=== PATIENT | female | born 1960 | race Caucasian/White ===

== ENCOUNTER → 2017-08-11 15:48 | Outpatient (CLI) | payer OTHER, SELFPAY ==
--- NOTE | 2017-08-11 16:50 | MM_ITS ---
MM Dig screening mamm BI w/CAD CAD Screening INDICATION: Screening exam ORDERING PHYSICIAN: Rosita Streeter PATIENT AGE: 56 years Patient gives history of having previous exam however, they're not available for review. Report is delayed waiting on those studies which are not been made available. Those reports are available for review with the exam dated 03/06/2004 TECHNIQUE: Standard CC and MLO images were obtained. R2 CAD reviewed. FINDINGS: There is average fibroglandular tissue.. Loosely clustered calcifications are present in the upper outer aspect of the right breast. These are probably benign however they were not mentioned previously. A cluster of calcifications are noted in the upper outer left breast also not mentioned on the previous exam. Magnification views of both of these areas are recommended along with straight ML views. Scattered asymmetric densities are present including left retroareolar region, central left breast, and central right breast for spot compression views are suggested. IMPRESSION: Bilateral indeterminate calcifications and asymmetric densities as described above indeterminate BI-RADS Category: 0 Need Additional Imaging Evaluation RECOMMENDED FOLLOW-UP: IMM - IMMEDIATE FOLLOW-UP RECOMMENDED Recommend bilateral magnification views, spot compression views, and straight ML views. If asymmetric densities persist then, ultrasound may be needed (A letter has been sent to patient explaining the results)
== END ==
PROVIDERS: Family Provider Internal Medicine Adolescent Medicine; PCP Internal Medicine Adolescent Medicine; Visit Provider Nurse Practitioner Family
DX: Z12.31 Encounter for screening mammogram for malignant neoplasm of breast (principal); M75.41 Impingement syndrome of right shoulder
CPT/HCPCS: 77067

== ENCOUNTER 2017-08-11 15:56 | Outpatient (RCR) | payer OTHER, SELFPAY | END 2017-08-11 15:57 | disposition home or self-care (01) | LOC: PT 15:56 | PROVIDERS: Family Provider Internal Medicine Adolescent Medicine; PCP Internal Medicine Adolescent Medicine; Visit Provider Nurse Practitioner Family | DX: M75.41 Impingement syndrome of right shoulder (principal) | CPT/HCPCS: 97163 ==

== ENCOUNTER → 2017-09-01 12:46 | Outpatient (CLI) | payer OTHER, SELFPAY ==
--- NOTE | 2017-09-01 12:52 | US_ITS ---
MM Dig mamm BI DX w/CAD, US breast LT complete US breast RT complete COMPARISON: 08/11/2017 INDICATION: Follow-up abnormal mammogram ORDERING PHYSICIAN: Rosita Streeter PATIENT AGE: 56 years TECHNIQUE: Problem-solving views performed of both breasts along with bilateral breast ultrasound FINDINGS: Right Mammogram: Calcifications in the upper outer aspect of the right breast are probably benign. Short-term follow-up suggested. The areas of asymmetric density appear to compress out likely representing fibroglandular tissue. A 5 mm nodular opacity is present in the outer aspect of the right breast may be due to a lymph node. Right breast ultrasound: No suspicious cystic or solid lesions are evident. Left mammogram: Cluster of calcifications noted in the upper outer aspect of the left breast are coarse in nature with some calcification being slightly smudgy. There is a probably benign. Or term follow-up recommended. Asymmetric density in the retroareolar region in the anterior mid aspect of the left breast seen on and the cc view also appears to compress out with no sonographic abnormality evident in this region. Probably benign. There is a benign-appearing 4 mm nodule in the outer aspect of the left breast and may be due to small lymph node Left breast ultrasound: No cystic or solid lesions evident. IMPRESSION: No convincing evidence of malignancy. Probably benign findings bilaterally. BI-RADS Category: 3 Benign Finding Short Term Follow-up RECOMMENDED FOLLOW-UP: 6M - 6 MONTH FOLLOW-UP bilateral 6 month mammographic follow up (A letter has been sent to the patient regarding results of the study.)
== END ==
PROVIDERS: Family Provider Internal Medicine Adolescent Medicine; PCP Internal Medicine Adolescent Medicine; Visit Provider Nurse Practitioner Family
DX: R92.8 Other abnormal and inconclusive findings on diagnostic imaging of breast (principal)
CPT/HCPCS: 76641; 77066

== ENCOUNTER → 2018-11-23 10:04 | Outpatient (CLI) | payer OTHER, SELFPAY ==
--- NOTE | 2018-11-23 10:17 | XR_ITS ---
XR chest 2V HISTORY: ITS.REASON: LEG EDEMA ORDERING PHYSICIAN: Deemtrio Collado MD PATIENT AGE: 57 years COMPARISON: None FINDINGS: The cardiomediastinal silhouette and pulmonary vascularity are within normal limits. The lungs are clear without infiltrates, suspicious nodules, or pleural effusions. 4 mm granuloma is present in the right midlung and 5 mm granuloma left lower lobe No acute bony abnormalities. IMPRESSION: No acute finding
[2018-11-23 11:43] LABS: Basophils % 0.7 % (0.1-2.0); Eosinophils # 0.2 K/mm3 (0.0-0.4); Eosinophils % 3.3 % (0.1-12.0); Hematocrit 48.2 % (37.0-47.0); Hemoglobin 15.7 g/dL (12.2-16.2); Mean Corpuscular HGB Conc 32.5 g/dL (31.8-35.4); Mean Corpuscular Hemoglobin 30.3 pg (27.0-31.2); Mean Corpuscular Volume 93.3 fl (81-99); Monocytes # 0.4 K/mm3 (0.1-1.0); Monocytes % 6.2 % (1.7-9.3); Neutrophils # 3.6 K/mm3 (1.8-7.8); Neutrophils % 57.7 % (37.0-80.0); Platelet Count 238 K/mm3 (142-424); Red Blood Count 5.17 M/mm3 (4.20-5.40); Red Cell Distribution Width 13.3 % (11.5-17.5); White Blood Count 6.2 K/mm3 (4.8-10.8)
[2018-11-23 12:36] LABS: Alanine Aminotransferase 32 U/L (12-78); Albumin Level 3.6 gm/dL (3.4-5.0); Albumin/Globulin Ratio 1.1 (1.1-1.8); Alkaline Phosphatase 136 U/L (46-116); Aspartate Amino Transferase 13 U/L (15-37); Bilirubin,Total 0.5 mg/dL (0.2-1.0); Blood Urea Nitrogen 18 mg/dL (7-18); Calcium 9.3 mg/dL (8.5-10.1); Carbon Dioxide 26 mmol/L (21.0-32.0); Chloride 106 mmol/L (98-107); Chol/HDL Ratio 8.2 (1-3.5); Cholesterol 237 mg/dL (140-200); Estimated Glomerular Filt Rate 57 ml/min (>60); GFR (African American) 69 ML/MIN (>60); Globulin 3.3 gm/dl (1.3-3.2); Glucose 82 mg/dL (74-106); HDL Cholesterol 29 mg/dL (29-89); LDL Cholesterol 161 mg/dL (0-130); Sodium 142 mmol/L (136-145); T4 (Thyroxine) 9.7 ug/dl (4.7-13.3); Thyroid Stimulating Hormone 1.28 uIU/ml (0.358-3.740); Total Protein,Serum 6.9 gm/dL (6.4-8.2); Triglycerides 235 mg/dL (30-200); VLDL Cholesterol 47 mg/dL (0-40)
== END ==
PROVIDERS: PCP Internal Medicine Adolescent Medicine; Visit Provider Internal Medicine Adolescent Medicine
DX: R60.0 Localized edema (principal)
CPT/HCPCS: 36415; 71046; 80053; 80061; 84436; 84443; 85025

== ENCOUNTER → 2018-12-23 16:52 | Outpatient (CLI) | payer OTHER, SELFPAY ==
--- NOTE | 2018-12-23 16:56 | MM_ITS ---
PROCEDURE: MM DIG SCREENING MAMM BI W/CAD CLINICAL INDICATION: ROUTINE SCREENING There is a history of breast cancer in the patient's aunts. COMPARISON: [facility] MM Dig screening mamm BI w/CAD from 08/11/2017 [facility] MM Dig mamm BI DX w/CAD from 09/01/2017 TECHNIQUE: Standard CC and MLO images were obtained. R2 CAD reviewed. FINDINGS: Scattered fibroglandular densities are seen in both breasts. There is a collection of microcalcifications upper-outer quadrant right breast which have been seen previously. However there has been interval increase in number of microcalcifications since previous exams. There is suggestion of mild architectural distortion as well. Most of the microcalcifications have a benign appearance however there are a couple that are indeterminate and in view of the fact that they have increased in number since the previous exam I believe biopsy is indicated. Stable microcalcifications upper-outer quadrant left breast. There are stable tiny benign-appearing nodular densities near the axillary tail of each breast likely low-lying nodes or microcysts. IMPRESSION: Fibrofatty parenchyma with possible interval change in number of microcalcifications and questionable architectural distortion right breast BI-RAD Category: 4 Suspicious Abnormality - Biopsy Considered FOLLOW-UP: BIO Biopsy Recommended (A letter has been sent to the patient regarding results of the study.) Dictated by: Dr. Zbigniew Astudillo MD 12/29/2018 11:[address] Zbigniew Astudillo MD in [place] 12/29/2018 11:01
== END ==
PROVIDERS: PCP Internal Medicine Adolescent Medicine; Visit Provider Internal Medicine Adolescent Medicine
DX: Z12.31 Encounter for screening mammogram for malignant neoplasm of breast (principal)
CPT/HCPCS: 77067

== ENCOUNTER → 2019-01-11 10:20 | Outpatient (CLI) | payer OTHER, SELFPAY ==
--- NOTE | 2019-01-11 10:23 | MM_ITS ---
PROCEDURE: MM STEREOTACTIC LOC RT CLINICAL INDICATION: MICROCALCIFICATION Abnormal mammogram TECHNIQUE: Following obtaining informed consent, the patient was given 1 mg of Xanax p.o.. The patient was placed on the stereotactic table and the abnormality was localized in the most appropriate projection. The breast was prepped in the routine manner, with sterile prep and the overlying skin anesthetized. A 3 to 4 mm skin incision was performed and the 9 gauge sorus vacuum-assisted core biopsy needle was advanced to the region of the calcification. Pre- and post fire images were obtained. Immediately upon firing of the needle, there was brisk hemorrhage noted through the needle and the tubing. Or the biopsy bed was flushed with buffered lidocaine mixed with epinephrine. The bleeding continued. The cavity was flushed once again with buffered lidocaine with epinephrine. The bleeding did not completely see spit did decreased. Multiple core biopsies were then obtained. No definite calcifications were identified. Additional biopsies were obtained but no definite calcification or apparent. The patient continued to bleed in the study was then discontinued.. Additional lidocaine mixed with epinephrine was instilled. After the needle was withdrawn, pressure was applied. No obvious hematomas or evident. The bleeding did stop.. Specimen radiograph: No definite calcifications apparent. A tiny titanium nonferromagnetic MicroMark was positioned through the mammotome needle into the biopsy site. Post biopsy mammogram following clip placement showed a clip present within the location of the calcifications with post biopsy changes. Pathology: Rare fragments of fibroadipose tissue in a background of hematoma. No definite breast parenchyma. No calcifications. IMPRESSION: Status post stereotactic directed biopsy of the right breast. There was immediate bleeding once the needle was fired which hampered performance of the exam. Calcifications were not able to be obtained and the biopsy was discontinued due to the bleeding. There was no significant hematoma however after the exam. Suggest repeat biopsy with a different approach when the patient can tolerate at no additional charge to the patient. Dictated by: Dane Magaña MD 01/20/2019 09:17 Electronically signed by Dane Magaña MD in [place] 01/20/2019 09:17
== END ==
PROVIDERS: PCP Internal Medicine Adolescent Medicine; Visit Provider Internal Medicine Adolescent Medicine
DX: R92.0 Mammographic microcalcification found on diagnostic imaging of breast (principal)
CPT/HCPCS: 19081; 76098; 77065

== ENCOUNTER → 2019-02-03 12:15 | Outpatient (CLI) | payer OTHER, SELFPAY ==
[2019-02-03 14:13] LABS: Alanine Aminotransferase 21 U/L (12-78); Albumin Level 3.6 gm/dL (3.4-5.0); Albumin/Globulin Ratio 1.2 (1.1-1.8); Alkaline Phosphatase 126 U/L (46-116); Anion Gap 16.8 mEq/L (5-15); Aspartate Amino Transferase 10 U/L (15-37); Bilirubin,Total 0.5 mg/dL (0.2-1.0); Blood Urea Nitrogen 17 mg/dL (7-18); Calcium 9.3 mg/dL (8.5-10.1); Carbon Dioxide 24 mmol/L (21.0-32.0); Chloride 105 mmol/L (98-107); Chol/HDL Ratio 3.1 (1-3.5); Cholesterol 139 mg/dL (140-200); Estimated Glomerular Filt Rate 64 ml/min (>60); GFR (African American) 78 ML/MIN (>60); Globulin 3.1 gm/dl (1.3-3.2); Glucose 88 mg/dL (74-106); HDL Cholesterol 45 mg/dL (29-89); LDL Cholesterol 74 mg/dL (0-130); Potassium 3.8 mmoL/L (3.5-5.1); Sodium 142 mmol/L (136-145); Total Protein,Serum 6.7 gm/dL (6.4-8.2); Triglycerides 102 mg/dL (30-200); VLDL Cholesterol 20 mg/dL (0-40)
== END ==
PROVIDERS: Visit Provider Internal Medicine Adolescent Medicine
DX: I10 Essential (primary) hypertension (principal)
CPT/HCPCS: 36415; 80053; 80061

== ENCOUNTER → 2019-08-18 10:48 | Outpatient (CLI) | payer OTHER, SELFPAY ==
--- NOTE | 2019-08-18 11:13 | CA_ITS ---
APPROVED REPORT EXAM: Comprehensive 2D, Doppler, and color-flow Echocardiogram Office Manager Receptionist: Ginette Ochoa RT(R) Ht: 5 ft 1 in Wt: 192lbs BSA: 1.86 BP: 140/84 mmHg Indications: Edema, smoker, fatigue, palpitations, hyperlipidemia, family history of HD 2D Dimensions LVOT 1.53 cm (M/F) 1.5-2.5 M-Mode Dimensions RVDd 1.87 cm (0.9-2.6) LVDd 4.20 cm (3.5-5.7) LVDs 2.98 cm (3.5-5.7) IVSd 1.11 cm (0.6-1.1) PWd 0.68 cm (0.6-1.1) EF (Teich) 56.20% FS 29.00% EDV (Teich) 78.60 mL ESV (Teich) 34.40 mL LV Diastology E/A Ratio 0.66 Mitral Valve MV A Velocity 101.00 (40-130 cm/s) Left Ventricle Left atrium is mildly enlarged, left ventricle is normal size, mild concentric left ventricular hypertrophy, visually estimated ejection fraction 55% with no regional wall motion abnormality. Grade 1 diastolic dysfunction seen without tissue Doppler evidence of raise left atrial pressure. Right Ventricle Right atrium and right ventricular normal size and contractility. Aortic Valve Aortic valve is minimally thickened and fibrosed, there is no aortic stenosis or aortic insufficiency. Mitral Valve Mitral valve is grossly normal, there is mild mitral regurgitation. Tricuspid Valve Tricuspid valve is grossly normal, there is mild tricuspid regurgitation. Pulmonic Valve Pulmonic valve is poorly visualized. Great Vessels Aortic root is normal size. Pericardium No significant pericardial effusion noted. Conclusion 1. Mildly enlarged left atrium, normal left ventricular size, mild concentric left ventricular hypertrophy, visually estimated ejection fraction 55% with no regional wall motion abnormality, grade 1 diastolic dysfunction seen without tissue Doppler evidence of raise left atrial pressure. 2. Mild mitral and tricuspid regurgitation. 3. No significant pericardial effusion noted. Electronically signed by : Pradeep Aguilar, 08/18/2019 13:11:38
== END ==
PROVIDERS: PCP Internal Medicine Adolescent Medicine; Visit Provider Internal Medicine Adolescent Medicine
DX: I10 Essential (primary) hypertension (principal)
CPT/HCPCS: 93306

== ENCOUNTER → 2021-05-13 07:06 | Outpatient (CLI) | payer OTHER, SELFPAY ==
--- NOTE | 2021-05-13 07:35 | MR_ITS ---
FINAL REPORT CLINICAL HISTORY: APOPHYSITIS OF RIGHT CALCANEUS. unable to put weight on foot. knot on posterior aspect of foot x1wk ago with swelling and discoloration. no injury or trauma. FINDINGS: Multiplanar MR imaging of the right ankle was performed without contrast. The bony structures are intact without evidence of fracture, bone bruise or marrow edema. No osteochondral lesion is identified. The ligaments are intact without evidence of injury. There is distal Achilles tendinitis and peritendinitis. There is a focal partial tear of the posterior surface of the distal Achilles tendon near the insertion with localized enlargement of the tendon and overlying soft tissue edema/inflammation. This likely accounts for the palpable abnormality and is best seen on series 3, image 22 and series 6, images 14 and 15. The posterior plantar aponeurosis is intact. No significant joint effusion is seen. The musculature is intact. There is no evidence of soft tissue mass or cyst. IMPRESSION: Distal Achilles tendinitis and peritendinitis. Focal partial tear of the distal Achilles tendon with localized enlargement and overlying soft tissue edema/inflammation likely accounting for the palpable abnormality. Reviewed, Interpreted and Dictated by Placido Kumari III, MD Transcribed by Gene Yu Authenticated by Placido Kumari III, MD on 05/13/2021 11:30:[address] [facility]
== END ==
PROVIDERS: PCP Internal Medicine Adolescent Medicine; Visit Provider Internal Medicine Adolescent Medicine
DX: M92.8 Other specified juvenile osteochondrosis (principal); M79.671 Pain in right foot
CPT/HCPCS: 73721

== ENCOUNTER → 2021-05-16 12:33 | Outpatient (CLI) | payer OTHER, SELFPAY ==
[2021-05-16 13:26] LABS: Basophils # 0.1 K/mm3 (0-0.2); Basophils % 1.8 % (0.1-2.0); Eosinophils # 0.2 K/mm3 (0.0-0.4); Hematocrit 50.1 % (37.0-47.0); Lymphocytes # 2.2 K/mm3 (0.7-4.5); Lymphocytes % 28.5 % (10-50); Mean Corpuscular HGB Conc 31.9 g/dL (31.8-35.4); Mean Corpuscular Hemoglobin 30.6 pg (27.0-31.2); Monocytes # 0.4 K/mm3 (0.1-1.0); Monocytes % 5.6 % (1.7-9.3); Neutrophils # 4.7 K/mm3 (1.8-7.8); Neutrophils % 62.1 % (37.0-80.0); Platelet Count 307 K/mm3 (142-424); Red Blood Count 5.21 M/mm3 (4.20-5.40); Red Cell Distribution Width 13.1 % (11.5-17.5); White Blood Count 7.5 K/mm3 (4.8-10.8)
[2021-05-16 13:46] LABS: C-Reactive Protein 6.1 mg/L (0-4)
[2021-05-16 19:27] LABS: Erythrocyte Sedimentation Rate 17 mm/hr (0-30)
== END ==
PROVIDERS: PCP Internal Medicine Adolescent Medicine; Visit Provider Orthopaedic Surgery
DX: L53.9 Erythematous condition, unspecified (principal)
CPT/HCPCS: 36415; 85025; 85651; 86140

== ENCOUNTER 2021-05-23 12:28 | Outpatient (RCR) | payer OTHER, SELFPAY | END 2021-05-23 13:24 | disposition home or self-care (01) | LOC: PT 12:28 | PROVIDERS: Visit Provider Orthopaedic Surgery | DX: M79.671 Pain in right foot (principal) | CPT/HCPCS: 97760 ==

== ENCOUNTER → 2021-05-23 14:26 | Outpatient (CLI) | payer OTHER, SELFPAY ==
--- NOTE | 2021-05-23 14:27 | CA_ITS ---
FINAL REPORT TECHNIQUE: Multiple transverse and longitudinal images were performed of right the femoral-popliteal deep venous system with augmentation and compression maneuvers. CLINICAL HISTORY: right lower ext swelling/ pain FINDINGS: Right lower extremity duplex ultrasound demonstrates normal flow in the deep venous system. There is incomplete compression in the right peroneal vein. IMPRESSION: Partial right tibial venous thrombosis. No evidence of deep venous thrombosis. Reviewed, Interpreted and Dictated by Austin Fajardo MD Transcribed by Marline Werner Authenticated by Austin Fajardo MD on 05/26/2021 12:36:26 PM [facility]
== END ==
PROVIDERS: PCP Internal Medicine Adolescent Medicine; Visit Provider Orthopaedic Surgery
DX: R60.0 Localized edema (principal)
CPT/HCPCS: 93971

== ENCOUNTER → 2021-11-26 17:02 | Outpatient (CLI) | payer OTHER, SELFPAY ==
--- NOTE | 2021-11-26 17:05 | MM_ITS ---
PROCEDURE INFORMATION: Exam: MG Bilateral Screening 3D Mammography Exam date and time: 11/26/2021 4:57 PM Age: 60 years old Clinical indication: Screening examination. History of right stereotactic biopsy. Maternal aunts with breast cancer. TECHNIQUE: Imaging protocol: Bilateral Screening tomosynthesis and 2D mammography including computer-aided detection (CAD) when performed. COMPARISON: 1. MG MM CLIP PLACEMENT RT 01/11/2019 1:12 PM 2. MG MM SURGICAL SPECIMEN RT 01/11/2019 12:40 PM 3. MG MM DIG SCREENING MAMM BI W/CAD 12/23/2018 5:04 PM FINDINGS: MAMMOGRAPHY: Breast composition: There are scattered areas of fibroglandular density. Mass: No suspicious mass. Architectural distortion: None. Calcifications: No significant change in loose grouping of calcifications in the right upper outer quadrant, posterior 3rd, with related biopsy clip. No significant change in grouping of calcifications in the left upper outer quadrant, middle 3rd. Asymmetric density: None. Skin thickening: None. Axillary adenopathy: None. IMPRESSION: No mammographic evidence of malignancy. Annual screening is recommended unless otherwise clinically indicated. ASSESSMENT: BI-RADS Category 2: Benign
== END ==
PROVIDERS: PCP Internal Medicine Adolescent Medicine; Visit Provider Internal Medicine Adolescent Medicine
DX: Z12.31 Encounter for screening mammogram for malignant neoplasm of breast (principal)
CPT/HCPCS: 77063; 77067

== ENCOUNTER → 2022-10-13 12:30 | Outpatient (CLI) | payer OTHER, SELFPAY ==
--- NOTE | 2022-10-13 12:36 | XR_ITS ---
FINAL REPORT TECHNIQUE: Chest PA & Lateral CLINICAL HISTORY: LT SIDED CHEST WALL PAIN COMPARISON: None FINDINGS: 2 views of the chest were performed. The heart size is normal. The mediastinum is within normal limits. There is no acute cardiopulmonary process. There are no pleural effusions. There is no pneumothorax. The bony thorax appears intact. IMPRESSION: No acute cardiopulmonary process. Reviewed, Interpreted and Dictated by Austin Fajardo MD Transcribed by Ibeth Morales Authenticated and . [facility]
== END ==
LOC: RAD 12:32
PROVIDERS: PCP Internal Medicine Adolescent Medicine; Visit Provider Internal Medicine Adolescent Medicine
DX: R07.89 Other chest pain (principal)
CPT/HCPCS: 71046

== ENCOUNTER 2023-11-26 07:23 | Outpatient (CLI) | payer BC, SELFPAY ==
[2023-11-26 09:06] LABS: Alanine Aminotransferase 23 U/L (12-78); Albumin Level 3.7 g/dl (3.5-5.0); Albumin/Globulin Ratio 1.5 (1.1-1.8); Alkaline Phosphatase 121 U/L (38-126); Anion Gap 10.2 mEq/L (5-15); Aspartate Amino Transferase 22 U/L (14-36); Bilirubin,Total 0.4 mg/dl (0.2-1.3); Blood Urea Nitrogen 15 mg/dl (7-17); Calcium 9.3 mg/dl (8.4-10.2); Carbon Dioxide 26 mmol/L (22.0-30.0); Chloride 110 mmol/L (98-107); Chol/HDL Ratio 6.9 (1-3.5); Cholesterol 220 mg/dl (140-200); Estimated Glomerular Filt Rate 63 ml/min (>60); GFR (African American) 77 ML/MIN (>60); Globulin 2.5 g/dL (1.3-3.2); Glucose 126 mg/dl (74-100); HDL Cholesterol 32 mg/dl (40-60); Potassium 4.2 mmoL/L (3.5-5.1); Sodium 142 mmol/L (136-145); Total Protein,Serum 6.2 g/dl (6.3-8.2); Triglycerides 209 mg/dl (30-150); VLDL Cholesterol 42 mg/dL (0-40)
[2023-11-26 09:17] LABS: Direct LDL Cholesterol 154.04 mg/dL (100-129)
[2023-11-26 15:21] LABS: Hemoglobin A1C 5.7 % (4.0-6.0)
== END 2023-11-26 23:59 | disposition home or self-care (01) ==
LOC: LAB 07:26
PROVIDERS: PCP Internal Medicine Adolescent Medicine; Visit Provider Nurse Practitioner Family
DX: Z00.00 Encounter for general adult medical examination without abnormal findings (principal)
CPT/HCPCS: 36415; 80053; 80061; 83036

== ENCOUNTER 2023-12-08 08:14 | Outpatient (CLI) | payer BC, SELFPAY ==
--- NOTE | 2023-12-08 08:17 | MM_ITS ---
PROCEDURE INFORMATION: Exam: MG Bilateral Screening 3D Mammography Exam date and time: 12/08/2023 8:13 AM Age: 62 years old Clinical indication: Screening examination. Her maternal aunt had breast cancer. TECHNIQUE: Imaging protocol: Bilateral Screening tomosynthesis and 2D mammography including computer-aided detection (CAD) when performed. COMPARISON: 1. MG MM DIG SCREENING MAMM BI W/CAD 11/26/2021 4:57 PM 2. MG MM CLIP PLACEMENT RT 01/11/2019 1:12 PM 3. MG MM SURGICAL SPECIMEN RT 01/11/2019 12:40 PM 4. MG MM STEREOTACTIC LOC RT 01/11/2019 10:50 AM FINDINGS: MAMMOGRAPHY: Breast composition: There are scattered areas of fibroglandular density. Mass: None. Architectural distortion: None. Calcifications: No suspicious calcifications. Asymmetric density: Questionable 1.0 cm asymmetry with architectural distortion in the right outer breast, with related biopsy clip and stable related calcifications. Skin thickening: None. Axillary adenopathy: None. IMPRESSION: The patient will be recalled for right diagnostic mammography with spot compression CC and MLO and right sonography for further evaluation of questionable right asymmetry architectural distortion. ASSESSMENT: BI-RADS Category 0: Incomplete: Need Additional Imaging Evaluation and/or Prior Mammograms for Comparison
== END 2023-12-08 23:59 | disposition home or self-care (01) ==
LOC: RAD 08:14
PROVIDERS: Visit Provider Nurse Practitioner Family
DX: Z12.31 Encounter for screening mammogram for malignant neoplasm of breast (principal)
CPT/HCPCS: 77063; 77067

== ENCOUNTER 2023-12-20 14:17 | Outpatient (CLI) | payer BC, SELFPAY ==
--- NOTE | 2023-12-20 14:20 | MM_ITS ---
PROCEDURE INFORMATION: Exam: US Right Breast, Complete MG Right Diagnostic Breast Tomosynthesis Exam date and time: 12/20/2023 2:34 PM Age: 62 years old Clinical indication: Patient recalled on the basis of a screening mammogram for further evaluation; Right breast; asymmetry TECHNIQUE: Imaging protocol: Complete ultrasound of all four quadrants of the right breast and the retroareolar regions, including ultrasound of the axilla when performed. Right Diagnostic tomosynthesis and 2D mammography including computer-aided detection (CAD) when performed. Unilateral or bilateral exam. COMPARISON: US BREAST RT COMPLETE 12/20/2023 2:34 PM FINDINGS: MAMMOGRAPHY: Breast composition: There are scattered areas of fibroglandular density (based on the most recent screening mammogram report). Breast mammogram findings: Digital diagnostic spot compression views of the right breast and 90 degree lateral view of the right breast demonstrate persistent nonspecific tissue asymmetry surrounding the clip in the middle third of the right upper outer quadrant. There is subtle associated architectural distortion present. ULTRASOUND: Breast ultrasound findings: Sonographic images of the right 10 o'clock axis 7 cm from the nipple demonstrates an irregularly marginated hypoechoic solid mass containing a clip corresponding to the asymmetry on mammography. It measures 0.8 x 1.4 x 1.1 cm in dimension. There is associated architectural distortion. In the right 10 o'clock axis 10 cm from the nipple is a second hypoechoic irregularly marginated solid-appearing mass possibly containing clip or calcifications measuring 1.1 x 1.3 x 1.0 cm in dimension. Both masses are radiographically indeterminate and may reflect fat necrosis from prior biopsy. Underlying carcinoma cannot be excluded. No axillary adenopathy. No additional solid or cystic masses on the remainder of the right breast. IMPRESSION: 2 indeterminate solid masses in the right breast. Ultrasound-guided core biopsy of both masses is recommended for further evaluation. ASSESSMENT: BI-RADS Category 4: Suspicious.
== END 2023-12-20 23:59 | disposition home or self-care (01) ==
LOC: RAD 14:18
PROVIDERS: PCP Internal Medicine Adolescent Medicine; Visit Provider Nurse Practitioner Family
DX: R92.8 Other abnormal and inconclusive findings on diagnostic imaging of breast (principal)
CPT/HCPCS: 76641; 77061; 77065; G0279

== ENCOUNTER 2024-02-07 11:56 | Day surgery (SDC) | payer BC, SELFPAY ==
[2024-02-03 17:17] VITALS: BMI 37.8
[2024-02-07 12:45] VITALS: BP 146/74; PULSE 82; RESP 18; TEMP 36.4; O2SAT 96
[2024-02-07] MEDS: LACTATED RINGERS 1000ML 1,000 ML 25 ML IV (12:54)
--- NOTE | 2024-02-07 13:09 | P.PNANES_ITS ---
[facility] Disclaimer: The information contained in this section may have been updated after the patient was seen, as this information can be updated by other users. Medical History History of COVID-19 Hypertension Diastolic heart failure Surgical History H/O section S/P ear surgery History of breast biopsy Family History Son Malignant hyperthermia Other Cancer Social History Smoking Status: Current every day smoker alcohol intake: never substance use type: denies use current occupational status: employed Travel in the last 8 weeks: None caffeine: Yes [facility] Anesthesia Checklist Patient Identification Patient Identification: Arm Band and Verbal (Name & ) Structural Data Admitted From: Home Planned Operative Procedure/s: Colonoscopy Consent for Planned Operative Procedure(s) Verified: Yes Verified Documents: Surgical Consent and History and Physical NPO Status Verified Time NPO: 00:00 Additional verifications Anesthesia Reactions: No Airway Assessment Mallampati Score:: Class II C-Spine Mobility Assessed: Yes TMJ Mobility Assessed: Yes Dentition: Good Dentition Neurological Assessment Level of Consciousness: Awake Hx Seizures: No Numbness or tingling in extremities: No Anesthesia Plan Anesthesia Risk discussed: Yes Anesthesia Plan: Verified ASA Class: II Anesthesia Type: MAC
--- NOTE | 2024-02-07 14:05 | EXP.HP ---
History of Present Illness *Admission Date: 02/07/24 *Reason for visit:: Screening *History of present illness: Mrs. Rothman is a 63-year-old female who is here for screening colonoscopy. The examination is deemed medically necessary for colonoscopy. The patient has been seen, interviewed and examined prior to the procedure by both myself and the anesthesia provider. [facility] Disclaimer: The information contained in this section may have been updated after the patient was seen, as this information can be updated by other users. Medical History History of COVID-19 Hypertension Diastolic heart failure Surgical History H/O section S/P ear surgery History of breast biopsy Family History Son Malignant hyperthermia Other Cancer Social History (Updated 02/07/24 @ 13:11 by Rosa Patterson CRNA) Smoking Status: Current every day smoker alcohol intake: never substance use type: denies use current occupational status: employed Travel in the last 8 weeks: None caffeine: Yes Other Medical History Have you received the Pneumonia Vaccine: No Review of Systems Review of Systems Review of systems (narrative): Negative *Cardiovascular Comments: Negative *Gastrointestinal Comments: Negative *Genitourinary Comments: Negative *Musculoskeletal Comments: Negative *Neurologic Comments: Negative Meds Home Medications and Allergies Home Medications ?Medication ?Instructions ?Recorded ?Confirmed ?Type atorvastatin 40 mg tablet 40 mg PO DAILY 02/03/24 02/07/24 History bisoprolol fumarate 5 mg tablet 5 mg PO DAILY 02/03/24 02/07/24 History semaglutide 0.25 mg or 0.5 mg (2 0.25 mg SQ WEEKLY 02/03/24 02/07/24 History mg/3 mL) subcutaneous pen injector ([employer]) New Prescriptions to Start Prescriptions: Allergies Allergy/AdvReac Type Severity Reaction Status Date / Time ibuprofen Allergy Severe Anaphylaxis Verified 02/07/24 12:41 aspirin Allergy Unknown Anaphylaxis Verified 02/07/24 12:58 Cephalosporins Allergy Unknown Anaphylaxis Verified 02/07/24 12:58 formaldehyde Allergy Unknown Anaphylaxis Verified 02/07/24 12:58 Influenza Virus Vaccines Allergy Unknown Anaphylaxis Verified 02/07/24 12:58 morphine Allergy Unknown Anaphylaxis Verified 02/07/24 12:58 NSAIDS (Non-Steroidal Allergy Unknown Anaphylaxis Verified 02/07/24 12:58 Anti-Inflamma Sulfa (Sulfonamide Allergy Unknown Anaphylaxis Verified 02/07/24 12:58 Antibiotics) Exam Data for Last 24 hours Vital signs and Labs for Last 24 Hours: Temp Pulse Resp BP Pulse Ox O2 Del Method 97.5 F L 82 18 146/74 H 96 Room Air 02/07/24 12:45 02/07/24 12:45 02/07/24 12:45 02/07/24 12:45 02/07/24 12:45 02/07/24 12:45 *Routine HEENT Exam Head: Present normocephalic Eye: Present EOMI and PERRL ENT: Present mucous membranes moist *Routine Neck Exam Neck: Present supple *Routine Respiratory Exam Respiratory: Present CTA bilaterally *Routine Cardiovascular Exam Cardiovascular: Present RRR *Routine Abdominal Exam Abdominal: Present soft and normoactive bowel sounds; Absent tenderness *Routine Rectal Exam Rectal:: deferred *Routine Genitalia Exam Genitalia:: deferred *Routine Extremities Exam Extremities: Absent cyanosis, clubbing or edema *Routine Skin Exam Skin: Present warm; Absent rash *Routine Neurological Exam Neurological: Present alert and oriented X3 Assessment and Plan *Assessment and plan (1) Screening for colon cancer: Status: Acute Category: Medical Code(s): Z12.11 - Encounter for screening for malignant neoplasm of colon Plan A/P: 1. Screening colonoscopy is the preprocedural diagnosis. The patient will be anesthetized/sedated using MAC sedation. The patient has been seen and examined. Cardiac and lung assessment prior to the examination is stable. Proceed with planned colonoscopy
[2024-02-07 14:14] VITALS: O2SAT 99
--- NOTE | 2024-02-07 14:14 | [facility].PROCNOTE ---
[facility] Procedure Note Date: 02/07/24 Time: 14:14 Procedure Note:: Colonoscopy Procedure Report: Colonoscopy with cold snare polypectomy Endoscopist: Aston Velasquez II, MD Referring physician: Demetrio Collado M.D. Date of Procedure: February 07, 2024 Equipment: Olympus 190 variable stiffness pediatric colonoscope Sedation: MAC sedation Indication: Mrs. Rothman is a 63-year-old female who is here for initial screening colonoscopy. She reports no abdominal pain, weight loss, change in her bowel habits or rectal bleeding. She reports no family history of colon cancer. 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 She did have a normal or negative Cologuard test a couple of years ago. Procedure: Prior to the procedure, a history and physical exam was performed, and patient's medications and allergies were reviewed. The risks, benefits and alternatives of the sedation and procedure were discussed with the patient. All questions were answered and informed consent was obtained. The patient was brought to the procedure room. Patient identification and proposed procedure were verified by the physician and the nurse. The patient was placed in a left lateral decubitus position and the scope was passed under direct vision. Throughout the procedure, the patient's blood pressure, pulse, and oxygen saturations were monitored continuously. The colonoscopy was accomplished without difficulty. The patient tolerated the procedure well. Findings: On digital rectal examination there was normal rectal tone. There were no external hemorrhoids. The colonoscope was introduced through the anal canal to the rectum and advanced to the cecum. The ileocecal valve and appendiceal orifice were identified. The scope was advanced a short distance into the ileum which appeared grossly normal. The scope was then withdrawn into the colon. There were 2 diminutive 3 mm polyps in the ascending colon removed via cold snare polypectomy. The remaining cecum, ascending and transverse colon and mucosa were grossly normal. There were scattered diverticuli throughout the descending and sigmoid colon (LEFT colon). The rectum itself was normal. Upon retroflexion within the rectum there were grade 1 internal hemorrhoids. The preparation was excellent throughout with Horse Branch Preparation Score of 9. The cecal time was 10 minutes. Impression: 1. Diminutive ascending colon polyps x 2 2. Left-sided diverticulosis 3. Grade 1 internal hemorrhoids Plan: I will follow-up the polyp histology and recommend repeat screening/surveillance colonoscopy again in 7 to 10 years based upon the pathology. I would encourage bulking fiber supplementation on a long-term daily maintenance basis.
[2024-02-07 14:35] VITALS: BP 164/82; PULSE 85; RESP 16; TEMP 36.6; O2SAT 94
[2024-02-07 14:45] VITALS: BP 129/71; PULSE 80; RESP 16; O2SAT 98
[2024-02-07 14:55] VITALS: BP 135/67; PULSE 71; RESP 18; O2SAT 98
[2024-02-07 15:05] VITALS: BP 151/87; PULSE 78; RESP 17; TEMP 36.8; O2SAT 98
== END 2024-02-07 15:05 | disposition home or self-care (01) ==
PROVIDERS: PCP Internal Medicine Adolescent Medicine; Visit Provider Internal Medicine Gastroenterology
PROC: (CPT 45385; principal; 2024-02-07 13:30)
DX: K63.5 Polyp of colon (principal); K57.30 Diverticulosis of large intestine without perforation or abscess without bleeding; K64.0 First degree hemorrhoids; Z12.11 Encounter for screening for malignant neoplasm of colon
CPT/HCPCS: 45385; J7120